=== PATIENT | male | born 1960 | race Caucasian/White ===

== ENCOUNTER 2018-05-22 05:23 | Inpatient (IN) | payer OTHER ==
[2018-05-16 19:00] VITALS: BMI 34.0
--- NOTE | 2018-05-19 11:42 | PREOPHP ---
DATE OF ADMISSION: 05/22/2018 REASON FOR CONSULTATION: Consultation requested by Dr. Lenard Wood for medical evaluation and clearance of a 57-year-old gentleman about to undergo surgery. Thank you, Dr. Wood, for allowing us to participate in care of this patient. HISTORY OF PRESENT ILLNESS: Abhijeet Gimenez is a 57-year-old gentleman, issues with his back, is currently being admitted for correction of the above problem. In terms of his past medical and surgical history, from a medical standpoint has not had any hospitalizations. From a surgical standpoint, had the following done; repair of an anal fissure arthroscopic surgery, right knee and also tonsil and adenoid surgery. He has injured his left hand and fractured his right clavicle, other than that has not had any major surgeries or major fractures. MEDICATIONS: He is currently taking the following medications: 1. Bystolic 10 mg a day. 2. Losartan HCT 100/25mg 1 a day. 3. Metformin 500 mg 1 a day. 4. Invokana 300 mg 1a day. 5. Omeprazole 20 mg 1a day. 6. Tramadol 50 mg.12-3 xper day ALLERGIES: PENICILLIN AND SENSITIVE TO STEROIDS. SOCIAL HISTORY: The patient is , has 2 sons. He does not smoke. Alcohol socially. Does drink coffee. Has no difficulty sleeping at night. FAMILY HISTORY: Both parents are . Father in his 80s old age, also had kidney problems. Mother 86 of a stroke and had lung cancer. Two brothers and 1 sister living, one has MS. There is a family history of diabetes, heart, cancer, hypertension and stroke. No thyroid issues to his knowledge. REVIEW OF SYSTEMS HEENT: Denies any headaches or dizziness or diplopia. CARDIORESPIRATORY: Denies any chest pain or shortness of breath. GASTROINTESTINAL: No melena or hematemesis; however, has signs and symptoms of hyperacidity. GENITOURINARY: No urgency, frequency. MUSCULOSKELETAL: Positive for back problems. NEUROPSYCHIATRIC: Unremarkable. GENERAL HEALTH: As above. PHYSICAL EXAMINATION: VITAL SIGNS: The patient's blood pressure was 134/72, pulse was 68 and regular. Respirations were 18, temperature 98, height 6 feet 2 and 3/4 inches, weight 273 pounds. GENERAL: The patient was noted to be a well-developed, well-nourished male, alert and cooperative, in no apparent acute distress, oriented to time, place, and person. HEAD, EARS, EYES, NOSE AND THROAT: Head was atraumatic. Eyes: Pupils were equal, reactive to light and accommodation. Fundi were benign. Tympanic membranes were unremarkable. Nose was negative. Mouth was unremarkable. Fair oral hygiene was present. NECK: Supple without any rigidity. Trachea was midline. Thyroid was within normal limits. Neck veins were flat. Carotid pulses were equal. No bruits were heard. BACK: Unremarkable. CHEST: Symmetrical, evidence of a fractured right clavicle with deformity was noted on the right side. BREASTS AND AXILLARY: Exam did not reveal any masses. LUNGS: Clear. HEART: Examination of the heart, PMI is fifth intercostal space at the midclavicular line. A regular sinus rhythm was noted. No significant murmurs, rubs, or gallops being elicited. ABDOMEN: Soft, good bowel sounds were noted. No significant organomegaly, masses, or tenderness. GENITALIA: Normal male external genitalia. RECTAL AND PROSTATIC: Exam per PCP. EXTREMITIES: Did not reveal any clubbing, edema or cyanosis. Peripheral pulses were physiologic. SKIN: Moist and warm without any eruptions. No gross lymphadenopathy was noted. NEUROLOGIC: Grossly intact. IMPRESSION 1. Lumbar disk disease and spinal stenosis. 2. Diabetes mellitus type 2. 3. Hypertension. 4. Gastroesophageal reflux disease. 5. Stable health. DISCUSSION: Review of laboratory and other data revealed the following: The patient's chemistry panel revealed normal electrolytes, random glucose 107, BUN 24, creatinine 1, uric acid calcium proteins were normal. Liver function tests revealed minimally elevated SGPT and SGOT. Hemoglobin A1c was 6.5. CBC, UA, PT and PTT were within normal limits. Patient's EKG revealed some nonspecific ST-T wave changes. Patient's chest x-ray did not reveal any acute infiltrates nor were there any acute cardiopulmonary changes being noted. Bladder residual was 41 mL which is quite acceptable. DISCUSSION: Dr. Wood, I see no contraindications in patient undergoing the current proposed surgery under the desired form of anesthesia and feel he is a suitable candidate at this particular point in time and I will be more than happy to follow him along with you during his stay at [facility]. Thank you again, Dr. Wood, for allowing us to participate in the care of this patient. Dictated By: DAISY AQUINO MD SS/NTS Conf#: [id number] DID#: [id number] CC: LENARD WOOD MD;*EndCC* MTDD
[~2018-05-22] VITALS: Ht 190.5 cm; Wt 123.7 kg
[2018-05-22] VITALS (26 sets, daily range): BP systolic 83–133; BP diastolic 32–72; PULSE 64–91; RESP 0–20; Ht 190.5 cm; Wt 123.7 kg
[~2018-05-22 05:23] MED LIST: CANA300T PO; LOSA1TAB25 PO; METF500T24 PO; NEBI10TA2 PO; OMEP20CA16 PO
[2018-05-22] MEDS ORDERED: POLYMYXIN/BACITRACIN 1L IRRIG ONE (06:42)
[2018-05-22] MEDS ORDERED: THROMBIN (BOVINE) 5,000 UNIT VIAL TP ONE (06:42)
[2018-05-22] MEDS ORDERED: BUPIVACAINE 0.25% (MPF) 30 ML INJ ONE (06:42)
[2018-05-22] MEDS ORDERED: GELATIN SIZE 100 SPONGE ONE (06:42)
--- NOTE | 2018-05-22 06:52 | HPN ---
Date/Time of Note Date/Time of Note DATE: 05/22/18 TIME: 06:51 Interval H&P Admission Note Pt. seen H&P reviewed: No system changes FLOR WOOD MD May 22, 2018 06:52
[2018-05-22] MEDS ORDERED: TRAM150C25 PO (06:59)
[2018-05-22] MEDS ORDERED: LACTATED RINGER'S 1,000 ML IV* SCH ×2 (07:00)
[2018-05-22] MEDS ORDERED: OXYCODONE/ACETAMINOPHEN (5/325) TAB PO PRN ×2 (07:00)
[2018-05-22] MEDS ORDERED: VANCOMYCIN 1 GM 250 ML IVPB ONE (07:00)
[2018-05-22] MEDS ORDERED: HYDROmorphONE 1 MG/5 ML IV SYRINGE IV PRN ×3 (07:00)
[2018-05-22] MEDS ORDERED: DIPHENHYDRAMINE 50 MG INJ IV PRN (07:00)
[2018-05-22] MEDS ORDERED: TRIMETHOBENZAMIDE 100 MG/ML VIAL IM PRN ×2 (07:00→10:30)
[2018-05-22] MEDS ORDERED: MEPERIDINE 25 MG INJ IV PRN (07:00)
[2018-05-22] MEDS ORDERED: hydrALAzine 20 MG INJ IV PRN (07:00)
[2018-05-22] MEDS ORDERED: IPRATROPIUM (NEB) 0.5 MG/2.5 ML AMP HHN PRN (07:00)
[2018-05-22] MEDS ORDERED: ALBUTEROL 0.083% (NEB) 2.5 MG/3 ML AMP HHN PRN (07:00)
[2018-05-22] MEDS ORDERED: ONDANSETRON 4 MG INJ IV PRN ×2 (07:00→10:30)
[2018-05-22] MEDS ORDERED: FENTAnyl 50 MCG/ML VIAL IV PRN ×3 (07:00)
[2018-05-22] MEDS ORDERED: MIDAZOLAM 1 MG/ML 2 ML INJ IV PRN (07:00)
[2018-05-22] MEDS ORDERED: LABETALOL HCL 20MG INJ IV PRN (07:00)
[2018-05-22] MEDS ORDERED: EPHEDrine SULFATE 50 MG/5 ML SYG IV PRN (07:00)
--- NOTE | 2018-05-22 07:01 | PREAC ---
Date/Time of Note Date/Time of Note DATE: 05/22/18 TIME: 06:58 Anesthesia Eval and Record Evaluation Time Pre-Procedure Interview DATE: 05/22/18 TIME: 06:58 Age 57 Sex male NPO: 8 hrs Preoperative diagnosis L4-L5 SPINAL STENOSIS Planned procedure DECOMPRESSIVE LUMBAR LAMI L4-L5, MICRODISCECTOMY L5-S1 POSSIBLE MICRODISC L3-L4 Past Medical History Past Medical History: Includes Cardio: HTN, Dyslipidemia Endo: Diabetes GI: GERD, Obesity Surgery & Anesthesia Issues No known issue Meds Anticoagulation: No Beta Antoinette within 24 hr: No Reason Beta Antoinette not given: Pt. not on B-Antoinette Reported Medications Omeprazole* (Omeprazole*) 20 Mg Capsule.dr, 20 MG PO DAILY, #30 CAP 05/16/18 Nebivolol Hcl* (Bystolic*) 10 Mg Tablet, 10 MG PO DAILY, #30 TAB 05/16/18 Losartan-Hydrochlorothiazide (Losartan-HCTZ) 100-25 Mg Tab, 1 TAB PO DAILY, TAB 05/16/18 Metformin Hcl* (Metformin Hcl*) 500 Mg Tablet, 500 MG PO WITH BREAKFAST, #30 TAB 05/16/18 Canagliflozin (Invokana) 300 Mg Tablet, 300 MG PO DAILY, TAB 05/16/18 Current Medications Vancomycin HCl 250 ml @ 250 mls/hr PRE-OP ONCE IVPB Last administered on 05/22/18at 06:24; Admin Dose 250 MLS/HR; Start 05/22/18 at 07:00; Stop 05/22/18 at 07:59 Lactated Ringer's 1,000 ml @ 25 mls/hr Q24H IV* Last administered on 05/22/18at 06:24; Admin Dose 25 MLS/HR; Start 05/22/18 at 07:00 Lactated Ringer's 1,000 ml @ 25 mls/hr Q24H IV* Last administered on 05/22/18at 06:24; Admin Dose 25 MLS/HR; Start 05/22/18 at 07:00 Meds reviewed: Yes Allergies Coded Allergies: Penicillins (Verified Allergy, Intermediate, RASH, 05/22/18) Bnucqxv-Ont-Mwr Reductase Inhibitor (Verified Allergy, Unknown, 05/22/18) cortisone (Verified Allergy, Unknown, 05/22/18) Uncoded Allergies: CORTISONE INJ (Allergy, Unknown, 05/16/18) Allergies Reviewed: Yes Labs/Studies Labs Reviewed: Reviewed by anesthesiologist Blood Bank Test 05/22/18 05:21 Blood Product Summary Counts test: N/A Studies: ECG (NL), CXR (NAPD) Pre-procedure Exam Last vitals Vital Signs Date Temp Pulse Resp B/P (MAP) Pulse Ox O2 O2 Flow FiO2 Time Delivery Rate 05/22/18 98.6 64 18 120/70 97 Room Air 05:20 (87) Airway: Adequate mouth opening, Adequate thyromental dist Mallampati: Mallampati II Teeth: Normal Lung: Normal Heart: Normal ASA Physical Status ASA physical status: 2 Emergency: None Planned Anesthetic General/MAC: ETT Planned Pain Management Parenteral pain med Pre-operative Attestations Prior to commencing anesthesia and surgery, the patient was re-evaluated, there was verification of: *The patient's identity *The results of appropriate recent lab work and preoperative vital signs *The above evaluation not changing prior to induction *Anesthetic plan, risk benefits, alternative and complications discussed with patient/family; questions answered; patient/family understands, accepts and wish es to proceed. Paul Patterson M.D. May 22, 2018 07:01
[2018-05-22] MEDS ORDERED: FENTAnyl 50 MCG/ML VIAL ONE (07:03)
[2018-05-22] MEDS ORDERED: CEFAZOLIN 1 GM INJ ONE (07:03)
[2018-05-22] MEDS ORDERED: ROCURONIUM 50 MG INJ ONE (07:03)
[2018-05-22] MEDS ORDERED: MIDAZOLAM 1 MG/ML 2 ML INJ ONE (07:03)
[2018-05-22] MEDS ORDERED: PROPOFOL 20 ML ONE (07:03)
[2018-05-22] MEDS ORDERED: NEOSTIGMINE 3 MG/3 ML SYRINGE ONE (07:03)
[2018-05-22] MEDS ORDERED: DEXAMETHASONE 4 MG/ML 5 ML INJ ONE (07:03)
[2018-05-22] MEDS ORDERED: GLYCOPYRROLATE 0.4 MG INJ ONE (07:03)
[2018-05-22] MEDS ORDERED: ONDANSETRON 4 MG INJ ONE (07:03)
[2018-05-22] MEDS ORDERED: LABETALOL HCL 20MG INJ ONE (07:33)
[2018-05-22] MEDS ORDERED: SUGAMMADEX SODIUM 200 MG/2 ML VIAL IV ONE (09:41)
--- NOTE | 2018-05-22 10:21 | PAC ---
Date/Time of Note Date/Time of Note DATE: 05/22/18 TIME: 10:21 Post-Anesthesia Notes Post-Anesthesia Note Last documented vital signs Vital Signs Date Temp Pulse Resp B/P (MAP) Pulse Ox O2 O2 Flow FiO2 Time Delivery Rate 05/22/18 98.6 64 18 120/70 97 Room Air 05:20 (87) Activity: WNL Respiratory function: WNL Cardiovascular function: WNL Mental status: Baseline Pain reasonably controlled: Yes Hydration appropriate: Yes Nausea/Vomiting absent: Yes Paul Patterson M.D. May 22, 2018 10:21
[2018-05-22] MEDS ORDERED: HYDROmorphONE 0.2 MG/ML PCA IV SCH (10:30)
[2018-05-22] MEDS ORDERED: CEPASTAT LOZENGE MT PRN (10:30)
[2018-05-22] MEDS ORDERED: AL HYDROX/MG HYDROX/SIMETH 30 ML CUP PO PRN (10:30)
[2018-05-22] MEDS ORDERED: DIPHENHYDRAMINE 50 MG CAP PO PRN (10:30)
[2018-05-22] MEDS ORDERED: DIAZEPAM 5 MG/ML SYG IM PRN (10:30)
[2018-05-22] MEDS ORDERED: DIAZEPAM 5 MG TAB PO PRN (10:30)
[2018-05-22] MEDS ORDERED: ACETAMINOPHEN 325 MG TAB PO PRN (10:30)
[2018-05-22] MEDS ORDERED: NALOXONE (0.4 MG/ML) INJ IV PRN (10:30)
[2018-05-22] MEDS ORDERED: BETHANECHOL 25 MG TAB PO PRN (10:30)
[2018-05-22] MEDS ORDERED: HYDROCODONE/APAP (5/325) TAB PO PRN ×2 (10:30)
[2018-05-22] MEDS ORDERED: NACL 0.9% 3 ML SYG IV SCH (10:30)
[2018-05-22] MEDS ORDERED: PROCHLORPERAZINE 10 MG TAB PO PRN (10:30)
--- NOTE | 2018-05-22 10:38 | SIPON ---
Date/Time of Note Date/Time of Note DATE: 05/22/18 TIME: 10:35 Operative Report Preoperative Diagnosis Herniated lumbar disc L3-4 on the right Lumbar spinal stenosis at L4 Herniated lumbar disc L5-S1 on the left Postoperative Diagnosis Same Operation/Procedure Performed Right hemilaminotomy L3 Decompressive laminectomy at L4 Left hemilaminotomy L5 Microdiscectomy L3-4 on the right and L5-S1 on the left Medial facetectomy and foraminotomy at L3-4 on the right, L4-5 bilaterally, and L5-S1 on the left Cosmetic wound closure (12 cm) Lateral localizing lumbar radiographs (2) Intraoperative nerve monitoring (3-1/4 hours) Surgeon see signature line golf course assistant Bruna GUSTAFSONA Anesthesia: general Estimated blood loss: 100 - 150 ml's Transfusion Required none Specimen Disc material L3-4 and L5-S1 Spinous process of L4 Grafts/Implants none Complications none FLOR WOOD MD May 22, 2018 10:38
[2018-05-22] MEDS: SOD CHLORIDE 0.45% 1,000 ML IV SCH ×2 (12:52→20:28)
--- NOTE | 2018-05-22 13:37 | OPR ---
DATE OF OPERATION: 05/22/2018 PREOPERATIVE DIAGNOSIS: 1. Herniated disk, L3-L4 on the right. 2. Lumbar spinal stenosis at L4. 3. Herniated disk, L5-S1 on the left.. POSTOPERATIVE DIAGNOSES: 1. Herniated disk L3-L4 on the right. 2. Lumbar spinal stenosis at L4. 3. Herniated disk, L5-S1 on the left. OPERATION PERFORMED: 1. Right hemilaminotomy L3. 2. Decompressive laminectomy at L4. 3. Left hemilaminotomy, L5. 4. Microdiskectomy at L3-L4 on the right and L5-S1 on the left. 5. Medial facetectomy and foraminotomy at L3-L4 on the right, L4-5 bilaterally, and L5-S1 on the lef t. 6. Cosmetic wound closure (12 cm). 7. Lateral localized lumbar radiographs (2). 8. Intraoperative nerve monitoring (3 and 1/4 hours). 9. Lateral localized lumbar radiographs (2). SURGEON: Lenard Wood MD AUTOMATIC SCREWMAKER: JOHNNY Fonseca ANESTHESIA: General endotracheal. ANESTHESIOLOGIST: Dr. Patterson. ESTIMATED BLOOD LOSS: 150 mL, none replaced. DRAINS: Two medium Hemovac drains employed. COMPLICATIONS: None. PERTINENT HISTORY AND PHYSICAL: This is a 57-year-old male who sustained an injury to his back in th e course of his employment on 11/14/2012. He has had extensive care since that time and remains high ly symptomatic with low back pain with radiation into both lower extremities. Treatment options were discussed with the patient, who elected to proceed with surgery. OPERATIVE FINDINGS AT SURGERY: Herniation of the L3-L4 and L5-S1 disks were noted and a moderately s evere central stenosis at L4 was also noted. The baseline intraoperative nerve monitoring revealed a decrease in the L3 potentials bilaterally by 30%, the L4 potentials bilaterally by 40%, the L5 poten tials bilaterally by 40% and the left S1 nerve root was down 30%. These all returned to normal after completion of the surgery. OPERATIVE PROCEDURE: With the patient in supine position and satisfactory induction of general endot bhavik anesthesia by Dr. Patterson, the patient was turned to the prone kneeling position over the [facility] frame. All pressure points were carefully padded. The back was prepped and draped in usual sterile fashion. Athrombic pumps were applied to the legs below the knees to prevent venous stasis d uring and after procedure. An indwelling Ferreira catheter was also placed preoperative to facilitate b ladder drainage during and after procedure. Two spinal needles placed next to what was felt to be th e L3 and L4 spinous processes, lateral roentgenogram was taken which confirmed anatomic localization. A 12 cm incision then carried out midline from L3 to the sacrum through skin and subcutaneous tissu e to deep fascia. Superficial retractors were placed and hemostasis secured with electrocautery and the fascia was incised in midline with a hot knife and a bilateral subperiosteal dissection carried o ut from L3 to L5. Deep retractors were placed and deep hemostasis secured with electrocautery. A se cond intraoperative radiograph was taken with Adina clamps were placed in what was felt to be the sp inous process of L4 and L5. This was confirmed with second x-ray. A left hemilaminotomy L5 was then carried out using Leksell rongeur, Kerrison punches and curettes. Ligamentum flavum was excised wit h sharp dissection. The operating microscope was moved into place. A medial facetectomy and foramin otomy was accomplished using small hand osteotome, mallet, Kerrison punches and curettes. The S1 cyrus t was mobilized medially and protected with Darrell'Errico nerve retractor using microdissection technique. This revealed a herniation of the L5-S1 disk on the left. A 15 blade knife used to cut a rectangul ar window in the annulus and posterior longitudinal ligament and multiple degenerative disk fragments were harvested with pituitary rongeurs and sent to laboratory for pathologic study. Additional frag ments were harvested using Luca curettes. A thorough search of the floor canal was made with an a rthroscopic probe. No additional fragments were encountered. Attention then turned to the L4 level, and a central decompressive laminectomy was carried out using a Cody right-angle bone rongeur, Leksell rongeur, Kerrison punches and curettes. Ligamentum flav um was excised with sharp dissection. The operating microscope was moved into place. Once again a m edial facetectomy and foraminotomy was accomplished using small hand osteotome, mallet, Kerrison punc hes and curettes. Attention was then turned to the L3 level on the right where a right hemilaminotomy was carried out u sing a Leksell rongeur, Kerrison punches and curettes. Ligamentum flavum was excised with sharp diss ection. The operating microscope was once again moved into place. A medial facetectomy, foraminotom y was accomplished using small hand osteotome, mallet, Kerrison punches and curettes. The L4 root wa s then mobilized medially and protected with Darrell'Fili nerve retractor using microdissection technique . This revealed a herniation of the L3-4 disk on the right. A 15 blade knife used to were cut a rec tangular window in the annulus and posterior longitudinal ligament. Multiple degenerative disk fragm ents were harvested with pituitary rongeurs and sent to laboratory for pathologic study. Additional fragments were harvested using Luca curettes. A thorough search of the floor canal was made with an arthroscopic probe. No additional fragments were encountered either at this level or at L5-S1 on the left. The anesthesiologist was asked to perform a Valsalva maneuver for 40 mmHg and no spinal fl uid leak was noted. The wound was then closed in layers over 2 medium Hemovac drains, one below the fascia, one above the fascia using #1 Vicryl Stratafix sutures on the deep paralumbar musculature and deep fascia of the back. A single 0 Vicryl tacking sutures to reapproximate the paraspinal musculat ure, and 2-0 Vicryl Stratafix sutures in subcutaneous tissue. The skin was then closed with 4-0 Vicr yl subcuticular cosmetic closing suture on the skin. Prior to wound closure, 2 medium Hemovac drains were inserted into the wound, one below the fascia, one above the fascia. Dermabond and sterile com pressive dressings were applied to the skin. The patient having tolerated procedure well, was then t urned to the supine position onto his bed and extubated by Dr. Patterson. He was transported to the recovery room in satisfactory condition. At the conclusion of procedure, sponge, instrument, and nee dle counts were all correct. NEED FOR CHEMICAL OPERATIONS SPECIALIST: During this spinal surgical procedure, my him assistant was used to retract and protect the spinal nerves and dural sac. My him assistant also employed the suction catheters to ricco bruno blood from the surgical field to improve visualization of the neural structures. The him assistant was medically necessary to facilitate the completion of the surgery in a safe and expeditious manner. State of [place] regulations, as well as hospital bylaws, preclude the use of non-licensed health care personnel such as operating room technicians, to perform these functions. Throughout the procedure, neural monitoring was carried out by [employer] including EMG, SSEP a nd MEP monitoring of the L3, L4, L5 and S1 nerve roots bilaterally along with spinal cord potentials. These were interpreted in real time by Dr. Jose Ramon Zamudio. Dictated By: LENARD WOOD MD TM/NTS Conf#: [id number] DID#: [id number] CC: DAISY AQUINO MD;*EndCC*
--- NOTE | 2018-05-22 13:55 | CONS ---
Consult Date/Type/Reason Admit Date/Time May 22, 2018 at 05:23 Initial Consult Date 05/16/2018 Type of Consultation: internal medicine Reason for Consultation pre-op imedical evaluation and clearance Requesting Provider: FLOR WOOD MD Date/Time of Note DATE: 05/22/18 TIME: 13:47 Subjective post-op in room congested Objective Vitals Vital Signs Date Temp Pulse Resp B/P (MAP) Pulse Ox O2 O2 Flow FiO2 Time Delivery Rate 05/22/18 98.3 12:42 05/22/18 76 20 97/62 (74) 97 Room Air 11:52 Exam BP97/62 Vital signs stable HEENT negative lungs clear heart regular rhythm Results/Medications Results 24 hrs Laboratory Tests Test 05/22/18 06:05 05/22/18 10:25 05/22/18 12:49 Bedside Glucose 101 134 127 Home Meds Reported Medications Tramadol Hcl* (Tramadol* ER) 150 Mg Cpmp.25.75, 150 MG PO DAILY PRN for PAIN LEVEL 6-10, #30 TAB 05/22/18 Omeprazole* (Omeprazole*) 20 Mg Capsule.dr, 20 MG PO DAILY, #30 CAP 05/16/18 Nebivolol Hcl* (Bystolic*) 10 Mg Tablet, 10 MG PO DAILY, #30 TAB 05/16/18 Losartan-Hydrochlorothiazide (Losartan-HCTZ) 100-25 Mg Tab, 1 TAB PO DAILY, TAB 05/16/18 Metformin Hcl* (Metformin Hcl*) 500 Mg Tablet, 500 MG PO WITH BREAKFAST, #30 TAB 05/16/18 Canagliflozin (Invokana) 300 Mg Tablet, 300 MG PO DAILY, TAB 05/16/18 Medications Current Medications Lactated Ringer's 1,000 ml @ 25 mls/hr Q24H IV* Last administered on 05/22/18at 06:24; Admin Dose 25 MLS/HR; Start 05/22/18 at 07:00 Lactated Ringer's 1,000 ml @ 25 mls/hr Q24H IV* Last administered on 05/22/18at 06:24; Admin Dose 25 MLS/HR; Start 05/22/18 at 07:00 Sodium Chloride 1,000 ml @ 100 mls/hr Q10H IV Last administered on 05/22/18at 12:52; Admin Dose 100 MLS/HR; Start 05/22/18 at 10:28 Acetaminophen/ Hydrocodone Bitart (Delevan (5/325)) 1 tab Q4H PRN PO .PAIN 1-5; Start 05/22/18 at 10:30; Status Hold Acetaminophen/ Hydrocodone Bitart (Delevan (5/325)) 2 tab Q4H PRN PO .PAIN 6-10; Start 05/22/18 at 10:30; Status Hold Vancomycin HCl 250 ml @ 125 mls/hr Q12H IVPB ; Start 05/22/18 at 19:00; Stop 05/23/18 at 08:59 Zolpidem Tartrate (Ambien) 5 mg HS PRN PO .INSOMNIA; Start 05/22/18 at 21:00 Prochlorperazine (Compazine) 10 mg Q4H PRN PO NAUSEA/VOMITING; Start 05/22/18 at 10:30 Trimethobenzamide HCl (Tigan) 200 mg Q4H PRN IM NAUSEA/VOMITING; Start 05/22/18 at 10:30 Ondansetron HCl (Zofran Inj) 4 mg Q6H PRN IV NAUSEA/VOMITING; Start 05/22/18 at 10:30 Al Hydrox/Mg Hydrox/Simethicone (Mag-Al Plus) 15 ml Q4H PRN PO .CONSTIPATION; Start 05/22/18 at 10:30 Docusate Sodium (Colace) 100 mg BID PO ; Start 05/23/18 at 09:00 Acetaminophen (Tylenol Tab) 650 mg Q4H PRN PO TEMP GREATER THAN 101F OR JAMIL; Start 05/22/18 at 10:30 Ascorbic Acid (Vitamin C) 1,000 mg BID PO ; Start 05/23/18 at 09:00 Ferrous Sulfate (Ferrous Sulfate (Ec)) 325 mg TID PO ; Start 05/23/18 at 09:00 Ranitidine HCl (Zantac) 150 mg BID PO ; Start 05/22/18 at 21:00 Diazepam (Valium) 5 mg Q4H PRN PO .MUSCLE SPASM; Start 05/22/18 at 10:30 Diazepam (Valium) 5 mg Q4H PRN IM .MUSCLE SPASM; Start 05/22/18 at 10:30 Phenol (Cepastat Lozenge) 1 lozenge PRN PRN MT .SORE THROAT; Start 05/22/18 at 10:30 Bethanechol Chloride (Urecholine) 25 mg PRN PRN PO .UNABLE TO VOID; Start 05/22/18 at 10:30 Diphenhydramine HCl (Benadryl) 50 mg Q6H PRN PO .PRURITUS; Start 05/22/18 at 10:30 IV Flush (NS 3 ml) 3 ml PER PROTOCOL IV ; Start 05/22/18 at 10:30 Hydromorphone HCl (Dilaudid OUTSIDE SALESPERSON) Q4PCA IV Last administered on 05/22/18at 11:14; Admin Dose 0.2 MG; Start 05/22/18 at 10:30 Naloxone HCl (Narcan) 0.2 mg Q2M PRN IV RR 8 BREATHS/MIN OR LESS; Start 05/22/18 at 10:30 Metformin HCl (Glucophage) 500 mg WITH BREAKFAST PO ; Start 05/23/18 at 07:50; Status UNV Miscellaneous Medication (Bystolic) 10 mg DAILY PO ; Start 05/23/18 at 09:00; Status UNV Miscellaneous Information 300 mg DAILY PO ; Start 05/23/18 at 09:00; Status UNV Miscellaneous Information 20 mg DAILY PO ; Start 05/23/18 at 09:00; Status UNV Assessment/Plan Hospital Course (Demo Recall) post-op spine surgery alert doing well seen in room Assessment/Plan (Daily) plan will continue current medications and monitor BP ,glucose etc, medically stable at this point will follow thank you DAISY Anthony MD May 22, 2018 13:55
[2018-05-22] MEDS: [UNRECOGNIZED DRUG - OTHER] XX SCH ×2 (16:00→21:15)
[2018-05-22] MEDS: VANCOMYCIN 1 GM (PMX) 250 ML IVPB SCH (19:27)
[2018-05-22] MEDS: RANITIDINE 150 MG TAB PO SCH (20:58)
[2018-05-22] MEDS ORDERED: ZOLPIDEM 5 MG TAB PO PRN (21:00)
[2018-05-23] MEDS: SOD CHLORIDE 0.45% 1,000 ML IV SCH ×2 (01:15→06:28)
[2018-05-23 03:24] VITALS: BP 120/67; PULSE 90; RESP 18
[2018-05-23 05:00] VITALS: BP 133/67; PULSE 84; RESP 18
[2018-05-23] MEDS ORDERED: PANTOPRAZOLE (EC) 40 MG TAB PO SCH (06:00)
--- NOTE | 2018-05-23 06:59 | PN ---
Date/Time of Note Date/Time of Note DATE: 05/23/18 TIME: 06:52 Assessment/Plan Lines/Catheters IV Catheter Type (from Nrs): Peripheral IV Ferreira in Place (from Nrs): Yes Subjective 24 Hr Interval Summary The patient is postop day #1 following a decompressive laminectomy at L4, microdiscectomy at L3-4 on the right, and L5-S1 on the left. He is resting comfortably in bed. He is afebrile. Neurovascular structures are intact distally. He did well with physical therapy yesterday, and I anticipate he will be cleared for discharge later today. His Hemovac has 30 cc this morning, will be discontinued. He has a Ferreira catheter in place and that will also be discontinued. He has been given strict discharge precautions and instructions as well as follow-up arrangements Exam/Review of Systems Vital Signs Vitals Vital Signs Date Temp Pulse Resp B/P (MAP) Pulse Ox O2 O2 Flow FiO2 Time Delivery Rate 05/23/18 98.8 84 18 133/67 98 Nasal 3.0 05:00 (89) Cannula Intake and Output 05/22/18 05/22/18 05/23/18 1515:00 23:00 07:00 IntakeIntake Total 2200 ml 600 ml OutputOutput Total 332 ml 2530 ml 2230 ml BalanceBalance 1868 ml -1930 ml -2230 ml Results Result Diagram: 05/23/18 0436 05/23/18 0438 FLOR WOOD MD May 23, 2018 06:59
[2018-05-23] MEDS: VANCOMYCIN 1 GM (PMX) 250 ML IVPB SCH (07:09)
[2018-05-23 07:32] VITALS: BP 127/66; PULSE 83; RESP 18
[2018-05-23] MEDS ORDERED: metFORMIN 500 MG TAB PO SCH (07:50)
--- NOTE | 2018-05-23 07:59 | CONS ---
Consult Date/Type/Reason Admit Date/Time May 22, 2018 at 05:23 Initial Consult Date 05/16/2018 Type of Consultation: internal medicine Reason for Consultation medical f/u post-op Requesting Provider: FLOR WOOD MD Date/Time of Note DATE: 05/23/18 TIME: 07:55 Subjective doing relatively well no complaints Objective Vitals Vital Signs Date Temp Pulse Resp B/P (MAP) Pulse Ox O2 O2 Flow FiO2 Time Delivery Rate 05/23/18 98.2 83 18 127/66 97 Nasal 07:32 (86) Cannula 05/23/18 3.0 05:00 Intake and Output 05/22/18 05/22/18 05/23/18 1515:00 23:00 07:00 IntakeIntake Total 2200 ml 850 ml 800 ml OutputOutput Total 332 ml 2530 ml 2230 ml BalanceBalance 1868 ml -1680 ml -1430 ml Exam vital signs stable HEENT negative O2 nasal cannula Lungs clear Heart regular rhythm abdomen soft Results/Medications Result Diagram: 05/23/18 0436 05/23/18 0438 Results 24 hrs Laboratory Tests Test 05/22/18 10:25 05/22/18 12:49 05/23/18 04:36 05/23/18 04:38 Bedside Glucose 134 127 Hemoglobin 12.4 L Hematocrit 38.3 L Sodium Level 140 Potassium Level 3.9 Chloride Level 104 Carbon Dioxide Level 29 Anion Gap 7 Blood Urea Nitrogen 15 Creatinine 0.83 Est Glomerular > 60 Filtrat Rate mL/min Glucose Level 119 Calcium Level 8.4 Home Meds Reported Medications Tramadol Hcl* (Tramadol* ER) 150 Mg Cpmp.25.75, 150 MG PO DAILY PRN for PAIN LEVEL 6-10, #30 TAB 05/22/18 Omeprazole* (Omeprazole*) 20 Mg Capsule.dr, 20 MG PO DAILY, #30 CAP 05/16/18 Nebivolol Hcl* (Bystolic*) 10 Mg Tablet, 10 MG PO DAILY, #30 TAB 05/16/18 Losartan-Hydrochlorothiazide (Losartan-HCTZ) 100-25 Mg Tab, 1 TAB PO DAILY, TAB 05/16/18 Metformin Hcl* (Metformin Hcl*) 500 Mg Tablet, 500 MG PO WITH BREAKFAST, #30 TAB 05/16/18 Canagliflozin (Invokana) 300 Mg Tablet, 300 MG PO DAILY, TAB 05/16/18 Medications Current Medications Lactated Ringer's 1,000 ml @ 25 mls/hr Q24H IV* Last administered on 05/22/18at 06:24; Admin Dose 25 MLS/HR; Start 05/22/18 at 07:00 Lactated Ringer's 1,000 ml @ 25 mls/hr Q24H IV* Last administered on 05/22/18at 06:24; Admin Dose 25 MLS/HR; Start 05/22/18 at 07:00 Sodium Chloride 1,000 ml @ 100 mls/hr Q10H IV Last administered on 05/23/18at 01:15; Admin Dose 100 MLS/HR; Start 05/22/18 at 10:28 Acetaminophen/ Hydrocodone Bitart (Nicollet (5/325)) 1 tab Q4H PRN PO .PAIN 1-5; Start 05/22/18 at 10:30; Status Hold Acetaminophen/ Hydrocodone Bitart (Nicollet (5/325)) 2 tab Q4H PRN PO .PAIN 6-10; Start 05/22/18 at 10:30; Status Hold Vancomycin HCl 250 ml @ 125 mls/hr Q12H IVPB Last administered on 05/23/18at 07:09; Admin Dose 125 MLS/HR; Start 05/22/18 at 19:00; Stop 05/23/18 at 08:59 Zolpidem Tartrate (Ambien) 5 mg HS PRN PO .INSOMNIA; Start 05/22/18 at 21:00 Prochlorperazine (Compazine) 10 mg Q4H PRN PO NAUSEA/VOMITING; Start 05/22/18 at 10:30 Trimethobenzamide HCl (Tigan) 200 mg Q4H PRN IM NAUSEA/VOMITING; Start 05/22/18 at 10:30 Ondansetron HCl (Zofran Inj) 4 mg Q6H PRN IV NAUSEA/VOMITING; Start 05/22/18 at 10:30 Al Hydrox/Mg Hydrox/Simethicone (Mag-Al Plus) 15 ml Q4H PRN PO .CONSTIPATION; Start 05/22/18 at 10:30 Docusate Sodium (Colace) 100 mg BID PO ; Start 05/23/18 at 09:00 Acetaminophen (Tylenol Tab) 650 mg Q4H PRN PO TEMP GREATER THAN 101F OR JAMIL; Start 05/22/18 at 10:30 Ascorbic Acid (Vitamin C) 1,000 mg BID PO ; Start 05/23/18 at 09:00 Ferrous Sulfate (Ferrous Sulfate (Ec)) 325 mg TID PO ; Start 05/23/18 at 09:00 Ranitidine HCl (Zantac) 150 mg BID PO Last administered on 05/22/18at 20:58; Admin Dose 150 MG; Start 05/22/18 at 21:00 Diazepam (Valium) 5 mg Q4H PRN PO .MUSCLE SPASM; Start 05/22/18 at 10:30 Diazepam (Valium) 5 mg Q4H PRN IM .MUSCLE SPASM; Start 05/22/18 at 10:30 Phenol (Cepastat Lozenge) 1 lozenge PRN PRN MT .SORE THROAT; Start 05/22/18 at 10:30 Bethanechol Chloride (Urecholine) 25 mg PRN PRN PO .UNABLE TO VOID; Start 05/22/18 at 10:30 Diphenhydramine HCl (Benadryl) 50 mg Q6H PRN PO .PRURITUS; Start 05/22/18 at 10:30 IV Flush (NS 3 ml) 3 ml PER PROTOCOL IV ; Start 05/22/18 at 10:30 Hydromorphone HCl (Dilaudid [employer]) Q4PCA IV Last administered on 05/22/18at 11 :14; Admin Dose 0.2 MG; Start 05/22/18 at 10:30 Naloxone HCl (Narcan) 0.2 mg Q2M PRN IV RR 8 BREATHS/MIN OR LESS; Start 05/22/18 at 10:30 Metformin HCl (Glucophage) 500 mg WITH BREAKFAST PO ; Start 05/23/18 at 07:50 Miscellaneous Medication (Bystolic) 10 mg DAILY PO ; Start 05/23/18 at 09:00 Miscellaneous Information 300 mg DAILY PO ; Start 05/23/18 at 09:00; Status UNV Pantoprazole (Protonix Tab) 40 mg DAILY@06 PO Last administered on 05/23/18at 06:41; Admin Dose 40 MG; Start 05/23/18 at 06:00 Miscellaneous Information (*Order Clarification Bulletin) INVOKANA IS NON- FORMULARY ITEM...PLE... Q8H XX ; Start 05/22/18 at 16:00 Bethanechol Chloride (Urecholine) 25 mg PRN PRN PO UNABLE TO VOID; Start 05/23/18 at 08:00 Assessment/Plan Hospital Course (Demo Recall) post-op spine surgery alert doing well seen in room Assessment/Plan (Daily) patient medically stable management per Dr. Wood still holding losartan/hct . DAISY AQUINO MD May 23, 2018 07:59
[2018-05-23] MEDS ORDERED: BETHANECHOL 25 MG TAB PO PRN (08:00)
[2018-05-23] MEDS: RANITIDINE 150 MG TAB PO SCH (08:27)
[2018-05-23] MEDS: FERROUS SULFATE (EC) 325 MG TAB PO SCH ×2 (08:28→13:59)
[2018-05-23] MEDS ORDERED: ASCORBIC ACID 500 MG TAB PO SCH (09:00)
[2018-05-23] MEDS ORDERED: NON-FORMULARY/PATIENT OWN MED (Canagliflozin (Invokana) 300 MG) PO SCH (09:00)
[2018-05-23] MEDS ORDERED: DOCUSATE SODIUM 100 MG CAP PO SCH (09:00)
[2018-05-23] MEDS ORDERED: NEBIVOLOL 5 MG TAB PO SCH (09:00)
[2018-05-23 13:09] VITALS: BP 124/59; PULSE 76; RESP 20
[2018-05-23 15:19] VITALS: BP 138/63; PULSE 72; RESP 19
== END 2018-05-23 14:58 | disposition home or self-care (01) | DRG 520 ==
LOC: REC 05:23 → EDSTATUS 07:00 → MS1 11:27
PROVIDERS: ADMIT Orthopaedic Surgery; ATTEND Orthopaedic Surgery
PROC: 0SB40ZZ Excision of Lumbosacral Disc, Open Approach (ICD-10-PCS; 2018-05-22)
PROC: 01NB0ZZ Release Lumbar Nerve, Open Approach (ICD-10-PCS; 2018-05-22)
PROC: 4A11X4G Monitoring of Peripheral Nervous Electrical Activity, Intraoperative, External Approach (ICD-10-PCS; 2018-05-22)
PROC: 0SB20ZZ Excision of Lumbar Vertebral Disc, Open Approach (ICD-10-PCS; principal; 2018-05-22 07:00)
DX: M51.26 Other intervertebral disc displacement, lumbar region (principal); M48.061 Spinal stenosis, lumbar region without neurogenic claudication; E11.9 Type 2 diabetes mellitus without complications; I10 Essential (primary) hypertension; K21.9 Gastro-esophageal reflux disease without esophagitis; E66.9 Obesity, unspecified; M51.27 Other intervertebral disc displacement, lumbosacral region; Z68.34 Body mass index [BMI] 34.0-34.9, adult
CPT/HCPCS: 72020; 80048; 81003; 82962; 85014; 85018; 86850; 86900; 86901; 86920; 87086; 88304; 97116; 97161; 97530; J0690; J1100; J1170; J2175; J2250; J2405; J2710; J3010; J3370; J7120